=== PATIENT | male | born 1970 | race Caucasian/White ===

== ENCOUNTER 2017-09-01 08:11 | Day surgery (SDC) | payer MEDICAID ==
[~2017-09-01 08:11] MED LIST: CENTRUM1 TA1 PO; MELOXICAM7.5 MG PO; VIAGRA25 MG PO
--- NOTE | 2017-09-01 09:37 | Operative Note ---
Surgeon/Diagnoses Surgeon/Vice [employer](s) Date of procedure: 09/01/17 Surgeon: MD Michelle Brody Diagnoses Pre-op diagnosis: Family history of colon cancer Perianal lesion Encountered for screening colonoscopy Post-op diagnosis Same as preoperative diagnosis, with the addition of falling: Minimal hemorrhoidal cushions Diverticulosis of the sigmoid (2 tiny shallow isolated diverticulum) Procedure Procedure Procedure: Colonoscopy Indications: LEE ANN LOMBARDO is a 46 year-old Male with a history of palpable perianal lesion and need for screening colonoscopy. He has a family history of colon cancer as his father was diagnosed with the disease" in his 40s". Colonoscopy November 2013 revealed no significant abnormality. Findings: Bowel preparation relatively fair Fairly significant spasticity and lack of relaxation Tiny palpable perianal lesion consistent with isolated small hemorrhoid 2 very small/shallow isolated sigmoid diverticulum Procedure Description: After informed consent was obtained, the patient was taken to the endoscopy suite. IV sedation ensued after he was transferred to the LEFT lateral decubitus position. Digital rectal exam revealed a tiny palpable nodule and inspection showed this to be consistent with a very small hemorrhoid. The colonoscope was placed in position. The entire colon was evaluated. Doppler preparation was relatively fair with irrigation and suctioning used to improve visualization. 2 tiny shallow isolated sigmoid diverticulae were noted. No mucosal lesions were seen. The patient did have fairly significant spasticity and lack of relaxation. The colonoscope was carefully removed and the patient was transferred to recovery. EBL (ml): 0 Anesthesia: IV sedation with 7 mg of Versed and 100 g of fentanyl Complications: No immediate Specimens: None Disposition Disposition: Stable to recovery from where he will be discharged home. He will follow up in one week. Repeat colonoscopy should be between 3-5 years secondary to family history and spasticity/lack of relaxation. at [id number]
[2017-09-01 15:10] VITALS: BP 107/65
== END 2017-09-01 10:05 | disposition home or self-care (01) ==
LOC: SDC 08:11
PROVIDERS: Surgery
PROC: 0DJD8ZZ Inspection of Lower Intestinal Tract, Via Natural or Artificial Opening Endoscopic (ICD-10-PCS; principal; 2017-09-01 08:30)
DX: Z12.11 Encounter for screening for malignant neoplasm of colon (principal); Z80.0 Family history of malignant neoplasm of digestive organs; K57.30 Diverticulosis of large intestine without perforation or abscess without bleeding; K64.9 Unspecified hemorrhoids